=== PATIENT | female | born 1985 | race Caucasian/White ===

== ENCOUNTER 2024-04-23 08:10 | Observation (INO) ==
--- NOTE | 2024-04-23 09:01 | Emergency Department Note ---
Impression & Plan Abdominal pain, Acute appendicitis ED Provider Note ED Provider Note NAME: MADIE BAPTISTE AGE:38 SEX: Female : 1985 ARRIVES VIA: Private vehicle INFORMANT: Patient ED PROVIDER(s): Rhonda Cornelius DO CHIEF COMPLAINT: Abdominal pain HPI: This is a 38-year-old female who presents emergency room due to abdominal pain that began last night. She states pain began in her central upper abdomen, and in the parts sales manager hours moved to her right lower quadrant. She states she had subjective fevers and chills, was nauseated but did not vomit. No left lower quadrant pain. No radiation of the pain into the back. He states she has had small more frequent bowel movements recently, no diarrhea, no black or bloody stools. No recent change in urine or urinary habits. She states no prior history of IBS or IBD. She has had a prior oophorectomy, no other abdominal surgeries. She recently restarted a medication for her hypertrophic cardiomyopathy as she had had difficulty getting it as she recently moved from [place] and was waiting on authorization from her 1st pressman on web press, Dr. Finch. PAST MEDICAL HISTORY:See Below PAST SURGICAL HISTORY:See Below FAMILY HISTORY:See Below SOCIAL HISTORY:See Below HOME MEDICATIONS:See Below ALLERGIES:See Below VITALS:See Below PHYSICAL EXAMINATION: GENERAL: alert, well appearing, well nourished, no distress, non-toxic EYE EXAM: normal conjunctiva, PERRL and EOM's grossly intact OROPHARYNX: no exudate, no erythema, lips, buccal mucosa, and tongue normal and mucous membranes are moist NECK: supple, no nuchal rigidity, no adenopathy, non-tender LUNGS: Clear to auscultation. Normal chest wall mechanics, no w/r/r HEART: no murmurs, S1 normal and S2 normal ABDOMEN: abdomen soft, non-tender, normo-active bowel sounds, no masses, no rebound or guarding. BACK: Back is symmetrical on inspection and there is no deformity, no midline tenderness, no CVA tenderness. SKIN: no rashes, petechiae, orbruising UPPER EXTREMITIES: upper extremities are grossly normal. FROM, nml pulses b/l. LOWER EXTREMITIES: No pitting edema. FROM, nml pulses b/l. NEURO EXAM: Normal sensorium, cranial nerves II-XII grossly intact, normal speech, no facial droop,nogross weakness of arms, no gross weakness of legs. Gross sensation intact. No ataxia. Vital Signs: reviewed and remarkable Differential Diagnosis: Appendicitis, ureterolithiasis, UTI, colitis, bowel obstruction, Crohn's disease, perforation, GI bleed, as well as others were considered MEDICAL DECISION MAKING: This is a 38-year-old female who presents emergency department due to concern for abdominal pain. Labs drawn and sent, IV established, patient monitored on telemetry. EKG performed at bedside interpreted by me. Patient given IV fluids, IV Zofran, IV Tylenol, and IV fentanyl for pain. She was afebrile and vital signs stable. Patient sent for CT of the abdomen and pelvis. CT revealed acute uncomplicated appendicitis. General surgery was contacted, they did come and see the patient. Due to concern for her prior cardiac history, they recommended hospitalist admission and they will see in consult. They also requested a dose of Zosyn to be given empirically. Case discussed with the hospitalist team for additional evaluation and management. Consultation(s): 1100: Lingle text sent to MARINO Gomez, with general surgery. 1134: General surgery request that medicine admit due to consideration of cardiac history. They request a dose of empiric Zosyn be given. 1148: Discussed with Dr. Henson, [facility] hospitalist team, for additional evaluation and management. 1207: [facility] team states patient should be admitted to [facility] given 1st pressman on web press is Dr. Finch. 1217: Discussed with Dr. Arrington, [facility] hospitalist team, for additional evaluation and management. ER Treatment Provided: See below 1055: Updated patient and family at bedside. Diagnostics Interpreted By Me: -ECG: Normal sinus at 61, normal axis, normal intervals, inverted T waves noted in 1, aVL, and V6. -Cardiac Monitoring: An order was placed for continuous cardiac monitoring. The monitor shows a rate of 60 with normal sinus rhythm. -Laboratory studies: As stated above and show below. -Imaging studies: CT a/p - no sbo, no ureterolithiasis Triage Nursing Note Reviewed Prior/Outside Records Reviewed Past Med/Surg History Problem List (Updated 04/23/24 @ 15:39 by Shelbie Jacobson DO) Preoperative cardiovascular examination LVH (left ventricular hypertrophy) Systolic anterior movement of mitral valve Hypertrophic obstructive cardiomyopathy (HOCM) Acute appendicitis (Acute) Abdominal pain (Acute) Medical History Hypertrophic cardiomegaly Social History Smoking Status: Former smoker Tobacco Type: Cigarettes Second Hand Exposure: No; Do You Dip or Chew Tobacco: No; Tobacco Cessation Education Requested by Patient: No Hx Alcohol Use: Yes Alcohol type: hard liquor Hx Substance Use: No Communication Ability: Effective Beliefs That Will Affect Care: None Current Living Situation: Spouse Feels Safe at Home: Yes Allergies Allergies Allergy/AdvReac Type Severity Reaction Status Date / Time cat dander Allergy Difficulty Verified 04/23/24 10:32 Breathing escitalopram [From Lexapro] Allergy Unknown Verified 04/23/24 10:32 Home Meds Home Medications Medication Instructions Recorded Confirmed calcium carbonate (Tums) 300 mg PO TID PRN Acid Reflux 04/23/24 04/23/24 cetirizine 10 mg tablet (Zyrtec) 10 mg PO DAILY 04/23/24 04/23/24 estradiol 0.1 mg/24 hr semiweekly 1 mg transdermal 2XWK 04/23/24 04/23/24 transdermal patch mavacamten 5 mg capsule (Camzyos) 5 mg PO DAILY 04/23/24 04/23/24 metoprolol succinate 200 mg 200 mg PO BID 04/23/24 04/23/24 tablet,extended release 24 hr rosuvastatin 10 mg tablet 10 mg PO DAILY 04/23/24 04/23/24 Results & Data (ED) Vital Signs Vital Signs - 24 hr 04/23/24 08:14 04/23/24 08:30 04/23/24 08:30 Temperature 36.5 C Temperature Source Oral Pulse Rate 72 68 Pulse Rate [Apical] Pulse Rate from SpO2 Sensor Respiratory Rate 18 Blood Pressure 136/78 189/88 H Blood Pressure [Right Arm] Blood Pressure Mean 97 131 Blood Pressure Mean [Right Arm] Blood Pressure Position Sitting Pulse Oximetry 97 Oxygen Delivery Method Room Air Sepsis Recent Fever Within 48 Hours No Sepsis New/Unexplained Change in Mental Status No Sepsis Action Taken by Nursing No Action Required 04/23/24 08:30 04/23/24 08:54 04/23/24 09:00 Temperature Temperature Source Pulse Rate 67 Pulse Rate [Apical] Pulse Rate from SpO2 Sensor 66 Respiratory Rate 19 Blood Pressure 189/88 H 171/88 H Blood Pressure [Right Arm] Blood Pressure Mean 131 115 Blood Pressure Mean [Right Arm] Blood Pressure Position Pulse Oximetry 96 Oxygen Delivery Method Sepsis Recent Fever Within 48 Hours Sepsis New/Unexplained Change in Mental Status Sepsis Action Taken by Nursing 04/23/24 09:09 04/23/24 10:12 04/23/24 11:32 Temperature Temperature Source Pulse Rate 68 69 Pulse Rate [Apical] 62 Pulse Rate from SpO2 Sensor 69 Respiratory Rate 14 12 21 Blood Pressure 132/72 Blood Pressure [Right Arm] 113/92 Blood Pressure Mean 92 Blood Pressure Mean [Right Arm] 99 Blood Pressure Position Pulse Oximetry 93 97 99 Oxygen Delivery Method Room Air Sepsis Recent Fever Within 48 Hours Sepsis New/Unexplained Change in Mental Status Sepsis Action Taken by Nursing Laboratory Data 04/23/24 08:27 04/23/24 08:27 Lab Results 04/23/24 04/23/24 Range/Units 08:25 08:27 WBC 12.71 H (4.8-10.8) K/ul RBC 4.55 (4.20-5.40) M/uL Hgb 13.4 (12.0-16.0) g/dl Hct 38.7 (37.0-47.0) % MCV 85.1 (80.0-100.0) fL MCH 29.5 (25.0-34.0) pg MCHC 34.6 (32.0-36.0) g/dL RDW Std Deviation 36.6 (36.4-46.3) fL RDW Coeff of Carmella 12.0 (11.5-14.5) % Plt Count 198 (130-400) K/uL MPV 11.5 (9.4-12.4) fL Immature Gran % (Auto) 0.4 % Neut % (Auto) 73.0 % Lymph % (Auto) 16.8 % [place] % (Auto) 7.2 % Eos % (Auto) 2.1 % Baso % (Auto) 0.5 % Neut # (Auto) 9.28 H (1.40-6.50) K/uL Lymph # (Auto) 2.13 (1.20-3.40) K/uL [place] # (Auto) 0.92 H (0.11-0.59) K/uL Eos # (Auto) 0.27 (0.00-0.50) K/uL Baso # (Auto) 0.06 (0.00-0.20) K/uL Immature Gran # (Auto) 0.05 (0.01-0.20) K/uL PT 9.9 (9.0-12.0) Seconds INR 0.9 (0.9-1.1) Sodium 138 (136-145) mmol/L Potassium 4.3 (3.5-5.1) mmol/L Chloride 104 (98-107) mmol/L Carbon Dioxide 28 (21-32) mmol/L Anion Gap 6 (3-11) BUN 9 (6-23) mg/dl Creatinine 0.72 (0.6-1.2) mg/dl Est Cr Clr Drug Dosing 147.5 ml/min eGFR 108.33 BUN/Creatinine Ratio 12.5 (10-20) Glucose 115 H (70-99(Fasting)) mg/dl Calcium 9.6 (8.6-10.3) mg/dl Magnesium 1.8 (1.7-2.4) mg/dl Total Bilirubin 0.5 (0.2-1.0) mg/dl AST 17 (13-39) U/L ALT 30 (7-52) U/L Alkaline Phosphatase 49 (34-104) U/L Total Protein 7.1 (6.0-8.3) gm/dl Albumin 4.7 (3.4-5.0) gm/dl Globulin 2.4 L (2.5-4.0) gm/dl Albumin/Globulin Ratio 2.0 (0.9-2) Lipase 13 (11-82) U/L TSH 4.169 (0.300-4.500) uIu/ml HCG, Qual Negative (Negative) Urine Color Yellow Urine Appearance Clear (Clear) Urine pH 5.5 (4.5-7.5) Ur Specific Wilmot 1.018 (1.000-1.030) Urine Protein Negative (Negative) Urine Glucose (UA) Negative (Negative) Urine Ketones Negative (Negative) Urine Blood Negative (Negative) Urine Nitrite Negative (Negative) Urine Bilirubin Negative (Negative) Urine Urobilinogen Negative (Negative) Ur Leukocyte Esterase Trace H (Negative) Urine WBC (Auto) 6-10 H (0-5) /hpf Urine RBC (Auto) 0-2 (0-2) /hpf U Hyaline Cast (Auto) 0-2 (0-2) /lpf U Epithel Cells (Auto) 3-5 H (0-2) /hpf Urine Bacteria (Auto) None Seen (None Seen) Administered Medications Lactated Ringer's (Lr) 1,000 mls @ 125 mls/hr IV .Q8H BARBARA Stop: 05/23/24 13:59 Last Admin: 04/23/24 14:33 Dose: 125 mls/hr Documented By: BCD Piperacillin Sod/Tazobactam Sod (Zosyn) 4.5 gm in 100 mls @ 25 mls/hr IV Q8H [facility]; Protocol Stop: 05/03/24 15:59 Last Admin: 04/23/24 15:55 Dose: 25 mls/hr Documented By: MG Discontinued Medications Bupivacaine HCl (Bupivacaine 0.5 % 5 Mg/1 Ml Mpf 30ml Vial) Confirm Administered Dose 30 ml .ROUTE .STK-MED ONE Stop: 04/23/24 16:23 Last Admin: 04/23/24 17:35 Dose: 30 ml Documented By: [facility] Fentanyl Citrate (Fentanyl Citrate Pf 100 Mcg/2 Ml Vial) 50 mcg IV NOW STA Stop: 04/23/24 08:57 Last Admin: 04/23/24 09:03 Dose: 50 mcg Documented By: HS Hydromorphone HCl (Hydromorphone Inj 0.5 Mg/0.5 Ml Syr) 0.5 mg IV NOW STA Stop: 04/23/24 15:36 Last Admin: 04/23/24 15:40 Dose: 0.5 mg Documented By: MG Hydromorphone HCl (Hydromorphone Inj 0.5 Mg/0.5 Ml Syr) 0.5 mg IV NOW STA Stop: 04/23/24 15:37 Last Admin: 04/23/24 15:40 Dose: Not Given Documented By: MG Sodium Chloride (Nss) 1,000 mls @ 999 mls/hr IV .Q1H1M ONE Stop: 04/23/24 09:56 Last Infusion: 04/23/24 10:04 Dose: Infused Documented By: Admin: 04/23/24 09:03 Dose: 999 mls/hr Documented By: RAE Acetaminophen (Ofirmev) 1,000 mg in 100 mls @ 400 mls/hr IV NOW STA Stop: 04/23/24 09:10 Last Infusion: 04/23/24 09:18 Dose: Infused Documented By: Admin: 04/23/24 09:03 Dose: 400 mls/hr Documented By: RAE Piperacillin Sod/Tazobactam Sod (Zosyn) 4.5 gm in 100 mls @ 200 mls/hr IV NOW ONE Stop: 04/23/24 12:02 Last Infusion: 04/23/24 12:24 Dose: Infused Documented By: Admin: 04/23/24 11:43 Dose: 200 mls/hr Documented By: MAGALI Ioversol (Optiray 320 100ml) 94 ml IV ONCE ONE Stop: 04/23/24 09:56 Last Admin: 04/23/24 09:55 Dose: 94 ml Documented By: SWATHI Metoprolol Succinate (Metoprolol Succ 50mg Ext Rel Tab) 200 mg PO NOW STA Stop: 04/23/24 13:59 Last Admin: 04/23/24 14:33 Dose: 200 mg Documented By: KERVIN Morphine Sulfate (Morphine Sulfate 4 Mg/Ml 1 Ml Carp\Vial) 4 mg IV NOW STA Stop: 04/23/24 11:52 Last Admin: 04/23/24 11:58 Dose: 4 mg Documented By: MAGALI Ondansetron HCl (Ondansetron Inj 2 Mg/Ml 2 Ml Vial) 4 mg IV NOW STA Stop: 04/23/24 08:57 Last Admin: 04/23/24 09:03 Dose: 4 mg Documented By: RAE Ondansetron HCl (Ondansetron Inj 2 Mg/Ml 2 Ml Vial) 4 mg IV NOW STA Stop: 04/23/24 15:31 Last Admin: 04/23/24 15:31 Dose: 4 mg Documented By: Imaging Data Radiologist's Impression: Abdomen/Pelvis CT 04/23/24 08:56 CT SCAN OF THE ABDOMEN AND PELVIS WITH IV CONTRAST CLINICAL HISTORY: Right lower quadrant abdominal pain. COMPARISON STUDY: No priors. TECHNIQUE: Following the IV administration of 94 cc of Optiray 320, CT scan of the abdomen and pelvis is performed from the lung bases to the proximal femora. Images are reviewed in the axial, sagittal, and coronal planes. IV contrast was administered without complication. A dose lowering technique was utilized adhering to the principles of ALARA. CT DOSE: 1548.73 mGy.cm FINDINGS: Lung bases: The heart is normal in size and without pericardial effusion. The lung bases are clear. There is a tiny hiatal hernia. Liver: The contrast-enhanced liver is enlarged, measuring 20.5 cm in length. Attenuation is diffusely diminished indicating steatosis.. There is no intrahepatic biliary ductal dilatation. The hepatic veins and portal veins are patent. Gallbladder: Unremarkable. Spleen: Normal in size and attenuation. Pancreas: Unremarkable. Adrenal glands: Unremarkable. Kidneys: The contrast enhanced kidneys are normal in size and without hydronephrosis. The kidneys enhance symmetrically. Abdominal vasculature: The abdominal aorta is normal in course and caliber. Bowel: There is no bowel obstruction. The appendix is the appendix is thick- walled and dilated, measuring up to 1.5 cm diameter as seen on axial image #257. The appendiceal wall is thickened and there is mild periappendiceal inflammation. Findings are consistent with acute appendicitis. There are large calcified appendicoliths. No fluid collection is seen to indicate abscess. Peritoneum: There is no intraperitoneal free air or abdominal ascites. There is a fat-containing umbilical hernia. Lymphadenopathy: None. Pelvic viscera: The bladder is normal as visualized. The prostate gland is diminutive and heterogeneous. The seminal vesicles are normal as imaged. Skeletal structures: No lytic or blastic lesions are seen. IMPRESSION: 1. Acute appendicitis. 2. There is no evidence of abscess or perforation. 3. Hepatomegaly and hepatic steatosis. 4. Additional findings as above. ACT 112: Negative or not required by law. Electronically signed by: Porfirio Dobson M.D. 04/23/2024 10:15 AM Discharge Plan Visit Data Chief Complaint: Abdominal Pain Stated Complaint: ABD PAIN ED Provider: Rhonda Cornelius Discharge Problem: Abdominal pain, Acute appendicitis Patient Disposition: Admitted As Inpatient Discharge Instructions Interventions: ED Discharge Assessment Last Done: 04/23/24 13:19
[2024-04-23] MEDS: fentaNYL citrate PF 100 MCG/2 ML VIAL IV STA (09:03)
[2024-04-23] MEDS: SODIUM CHLORIDE 0.9% 1,000 ML IV ONE (09:03)
[2024-04-23] MEDS: ONDANSETRON INJ 2 MG/ML 2 ML VIAL IV STA ×2 (09:03→15:31)
[2024-04-23] MEDS: ACETAMINOPHEN 1,000 MG/100 ML VIAL IV STA (09:03)
[2024-04-23 09:17] LABS: Basophils # (auto) 0.06 K/uL (0.00-0.20); Basophils % (auto) 0.5 %; Eosinophils # (auto) 0.27 K/uL (0.00-0.50); Eosinophils % (auto) 2.1 %; Hematocrit (blood only) 38.7 % (37.0-47.0); Hemoglobin 13.4 g/dl (12.0-16.0); Immature Granulocytes # (auto) 0.05 K/uL (0.01-0.20); Immature Granulocytes % (auto) 0.4 %; Lymphocytes # (auto) 2.13 K/uL (1.20-3.40); Lymphocytes % (auto) 16.8 %; Mean Corpuscular Hemoglobin 29.5 pg (25.0-34.0); Mean Corpuscular Hgb Conc 34.6 g/dL (32.0-36.0); Mean Corpuscular Volume 85.1 fL (80.0-100.0); Mean Platelet Volume 11.5 fL (9.4-12.4); Monocytes # (auto) 0.92 K/uL (0.11-0.59); Monocytes % (auto) 7.2 %; Neutrophils # (auto) 9.28 K/uL (1.40-6.50); Platelet Count 198 K/uL (130-400); RDW Standard Deviation 36.6 fL (36.4-46.3); Red Blood Count 4.55 M/uL (4.20-5.40); White Blood Count 12.71 K/ul (4.8-10.8)
[2024-04-23 09:19] LABS: Pregnancy Test, Serum Negative (Negative)
[2024-04-23 09:23] LABS: Albumin Level 4.7 gm/dl (3.4-5.0); BUN Creatinine Ratio 12.5 (10-20); Bilirubin,Total 0.5 mg/dl (0.2-1.0); Calcium 9.6 mg/dl (8.6-10.3); Creatinine Clr Calc Pharmacy 147.5 ml/min; Globulin 2.4 gm/dl (2.5-4.0); Magnesium 1.8 mg/dl (1.7-2.4); Potassium 4.3 mmol/L (3.5-5.1); Total Protein 7.1 gm/dl (6.0-8.3)
[2024-04-23 09:37] LABS: Appearance Urine Clear (Clear); Bacteria Urine Automated None Seen (None Seen); Bilirubin Urine Negative (Negative); Blood Urine Negative (Negative); Cast Urine Automated 0-2 /lpf (0-2); Color Urine Yellow; Glucose Urine UA Negative (Negative); Ketones Urine Negative (Negative); Leukocyte Esterase Urine Trace (Negative); Nitrite Urine Negative (Negative); Protein Urine Negative (Negative); RBC Urine Automated 0-2 /hpf (0-2); Specific Gravity Urine 1.018 (1.000-1.030); Urobilinogen Urine Negative (Negative); pH Urine 5.5 (4.5-7.5)
[2024-04-23 09:39] LABS: INR 0.9 (0.9-1.1); Prothrombin Time 9.9 Seconds (9.0-12.0)
[2024-04-23] MEDS: OPTIRAY 320 100ml IV ONE (09:55)
[2024-04-23 10:03] LABS: Thyroid Stimulating Hormone 4.169 uIu/ml (0.300-4.500)
--- NOTE | 2024-04-23 10:16 | CT Scan Report ---
CT SCAN OF THE ABDOMEN AND PELVIS WITH IV CONTRAST CLINICAL HISTORY: Right lower quadrant abdominal pain. COMPARISON STUDY: No priors. TECHNIQUE: Following the IV administration of 94 cc of Optiray 320, CT scan of the abdomen and pelvi s is performed from the lung bases to the proximal femora. Images are reviewed in the axial, sagittal , and coronal planes. IV contrast was administered without complication. A dose lowering technique wa s utilized adhering to the principles of ALARA. CT DOSE: 1548.73 mGy.cm FINDINGS: Lung bases: The heart is normal in size and without pericardial effusion. The lung bases are clear. T here is a tiny hiatal hernia. Liver: The contrast-enhanced liver is enlarged, measuring 20.5 cm in length. Attenuation is diffusely diminished indicating steatosis.. There is no intrahepatic biliary ductal dilatation. The hepatic ve ins and portal veins are patent. Gallbladder: Unremarkable. Spleen: Normal in size and attenuation. Pancreas: Unremarkable. Adrenal glands: Unremarkable. Kidneys: The contrast enhanced kidneys are normal in size and without hydronephrosis. The kidneys enh ance symmetrically. Abdominal vasculature: The abdominal aorta is normal in course and caliber. Bowel: There is no bowel obstruction. The appendix is the appendix is thick-walled and dilated, ton uring up to 1.5 cm diameter as seen on axial image #257. The appendiceal wall is thickened and there is mild periappendiceal inflammation. Findings are consistent with acute appendicitis. There are larg e calcified appendicoliths. No fluid collection is seen to indicate abscess. Peritoneum: There is no intraperitoneal free air or abdominal ascites. There is a fat-containing umbi lical hernia. Lymphadenopathy: None. Pelvic viscera: The bladder is normal as visualized. The prostate gland is diminutive and heterogeneo us. The seminal vesicles are normal as imaged. Skeletal structures: No lytic or blastic lesions are seen. IMPRESSION: 1. Acute appendicitis. 2. There is no evidence of abscess or perforation. 3. Hepatomegaly and hepatic steatosis. 4. Additional findings as above. ACT 112: Negative or not required by law. Electronically signed by: Porfirio Dobson M.D. 04/23/2024 10:15 AM
[2024-04-23] MEDS: PIPERACILLIN/TAZOBACTAM 4.5 GM/100 ML BAG IV ONE (11:43)
[2024-04-23] MEDS: MoRPHine SULFATE 4 MG/ML 1 ML CARP\\VIAL IV STA (11:58)
--- NOTE | 2024-04-23 12:03 | Surgery Consultation ---
Date of Consultation April 23, 2024 Assessment & Plan (1) Acute appendicitis: Patient with c/o abdominal pain that began last night , started in central abdomen and localized to RLQ. Reports fevers and chills and nausea without vomiting. Reports was not taking Camzyos for her hypertrophic cardiomyopathy as she has just recently moved here from [place] and was waiting on authorization from her manager intermediate, Dr. Finch. While off medication the patient endorses SOB, CP , palpitations while walking short distances (living room to kitchen), last echo was [address] scan concerning for acute appendicitis, WBC 12. On exam pt is in NAD, vSS , abdomen TTP , RLQ . Discussed with patient results of CT scan , recommending laparoscopic appendectomy with hardwood floor installation helper surgeon Dr. Fajardo. It was discussed that the patient could trial a course of antibiotics but states she would rather have surgical intervention. Recommending the patient be admitted to medicine, discussed with anesthesia patients past medical history and they will try to obtain records from Dr. Finch manager intermediate. Keep NPO, IV antibiotics Zosyn was given in the ER, IV fluids for hydration, IV analgesics and antiemetics PRN. Will tentatively add the patient for a laparoscopic appendectomy, surgical intervention is pending anesthesia evaluation/clearance. Patient seen and examined with Dr. Fajardo Supervising Physician Co-Signing Physician Notes Patient seen and examined, labs and imaging reviewed, agree with above. Presented with abdominal pain that migrated to the right lower quadrant. On exam, afebrile stable vitals, tender to palpation in right lower quadrant McBurney's point. CT personally viewed and interpreted agree with the assessment of acute appendicitis without evidence of perforation. Patient has a history of hypertrophic cardiomyopathy and needs treatment for this. Recently moved from [place]. We discussed options to include surgery versus antibiotics, patient desires surgery. We will discuss with anesthesia and if they are okay performing anesthesia at our facility given the cardiac history, then we will proceed with laparoscopic appendectomy. Patient will be admitted to the medicine service. Plan for laparoscopic appendectomy Risk of the procedure were discussed to include but not limited to bleeding, infection, open surgery, damage to surrounding structures, need for future more extensive surgery, abscess, leak, and the risk of anesthesia History of Present Illness Reason for Consultation: acute appendicitis Requesting Physician: Dr. Cornelius History of Present Illness Patient is a pleasant 38 yo female with PMH of hypertropic cardiomyopathy, obesity, HLD, who presented to the [facility] ER with c/o abdominal pain that began last night , started in central abdomen and localized to RLQ. Reports fevers and chills and nausea without vomiting. Denies past abdominal surgeries but does report a prior bilateral orchectomy. Reports was not taking Camzyos for her hypertrophic cardiomyopathy as she has just recently moved here from [place] and was waiting on authorization from her manager intermediate, Dr. Finch. While off medication the patient endorses SOB, CP , palpitations while walking short distances (living room to kitchen), last echo was 3 months ago. She denies blood thinners. General surgery was consulted for CT scan reading concerns for acute appendicitis. Allergies Allergy/AdvReac Type Severity Reaction Status Date / Time cat dander Allergy Difficulty Verified 04/23/24 10:32 Breathing escitalopram [From Lexapro] Allergy Unknown Verified 04/23/24 10:32 Home Medications Medication Instructions Recorded Confirmed Type calcium carbonate (Tums) 300 mg PO TID PRN Acid Reflux 04/23/24 04/23/24 History cetirizine 10 mg tablet (Zyrtec) 10 mg PO DAILY 04/23/24 04/23/24 History estradiol 0.1 mg/24 hr semiweekly 1 mg transdermal 2XWK 04/23/24 04/23/24 History transdermal patch mavacamten 5 mg capsule (Camzyos) 5 mg PO DAILY 04/23/24 04/23/24 History metoprolol succinate 200 mg 200 mg PO BID 04/23/24 04/23/24 History tablet,extended release 24 hr rosuvastatin 10 mg tablet 10 mg PO DAILY 04/23/24 04/23/24 History Patient History Medical History (Updated 04/23/24 @ 12:20 by Ludwig Arrington MD) Hypertrophic cardiomegaly Social History Smoking Status: Current some day smoker Feels Safe at Home: Yes Review of Systems Constitutional: + fever and + chills Gastrointestinal: + abdominal pain and + nausea; no vomiti ng Physical Exam Constitutional: cooperative and comfortable; no acute distress Respiratory: normal respiratory effort and able to speak in complete sentences; no respiratory distress Cardiovascular: Rate/Rhythm: regular rate Gastrointestinal (Abdomen): Percussion/Palpation: + abdomen tender, + guarding and abdomen soft Results & Data Vital Signs (Past 12 Hours) Vital Signs Temp Pulse Pulse Resp BP BP Pulse Ox 04/23/24 11:32 62 21 113/92 99 04/23/24 10:12 69 12 132/72 97 04/23/24 09:09 68 14 93 04/23/24 09:00 171/88 H 04/23/24 08:54 67 19 96 04/23/24 08:30 189/88 H 04/23/24 08:30 189/88 H 04/23/24 08:30 68 04/23/24 08:14 97.7 F 72 18 136/78 97 O2 Del Method 04/23/24 11:32 Room Air 04/23/24 10:12 04/23/24 09:09 04/23/24 09:00 04/23/24 08:54 04/23/24 08:30 04/23/24 08:30 04/23/24 08:30 04/23/24 08:14 Room Air Diagnostic Findings [place], [place] [phone] CT Scan Report Patient: MADIE BAPTISTE Admit Date: 04/23/24 MR#: [id number] Address1: [address] Acct ID:[id number] Address2: [address] Date: 1985 [facility] Zip: [place] [address] Age: 38 Location: ED Sex: F Room/Bed: Att Phy: Diagnosis: ABD PAIN Jigna Phy: PCP,NO Service Date: 04/23/24 Fam Phy: Interpreting Phy: Porfirio Dobson MDAdmit Phy: Ordering Phy: Rhonda Cornelius DO cc: ~ CT SCAN OF THE ABDOMEN AND PELVIS WITH IV CONTRAST CLINICAL HISTORY: Right lower quadrant abdominal pain. COMPARISON STUDY: No priors. TECHNIQUE: Following the IV administration of 94 cc of Optiray 320, CT scan of the abdomen and pelvis is performed from the lung bases to the proximal femora. Images are reviewed in the axial, sagittal, and coronal planes. IV contrast was administered without complication. A dose lowering technique was utilized adhering to the principles of ALARA. CT DOSE: 1548.73 mGy.cm FINDINGS: Lung bases: The heart is normal in size and without pericardial effusion. The lung bases are clear. There is a tiny hiatal hernia. Liver: The contrast-enhanced liver is enlarged, measuring 20.5 cm in length. Attenuation is diffusely diminished indicating steatosis.. There is no intrahepatic biliary ductal dilatation. The hepatic veins and portal veins are patent. Gallbladder: Unremarkable. Spleen: Normal in size and attenuation. Pancreas: Unremarkable. Adrenal glands: Unremarkable. Kidneys: The contrast enhanced kidneys are normal in size and without hydronephrosis. The kidneys enhance symmetrically. Abdominal vasculature: The abdominal aorta is normal in course and caliber. Bowel: There is no bowel obstruction. The appendix is the appendix is thick- walled and dilated, measuring up to 1.5 cm diameter as seen on axial image #257. The appendiceal wall is thickened and there is mild periappendiceal inflammation. Findings are consistent with acute appendicitis. There are large calcified appendicoliths. No fluid collection is seen to indicate abscess. Peritoneum: There is no intraperitoneal free air or abdominal ascites. There is a fat-containing umbilical hernia. Lymphadenopathy: None. Pelvic viscera: The bladder is normal as visualized. The prostate gland is diminutive and heterogeneous. The seminal vesicles are normal as imaged. Skeletal structures: No lytic or blastic lesions are seen. IMPRESSION: 1. Acute appendicitis. 2. There is no evidence of abscess or perforation. 3. Hepatomegaly and hepatic steatosis. 4. Additional findings as above. ACT 112: Negative or not required by law. Electronically signed by: Porfirio Dobson M.D. 04/23/2024 10:15 AM Dictated: 04/23/24 1010 Transcribed: 04/23/24 1010 Results CBC w Diff Results: RBC 4.55 M/uL (4.20-5.40) 04/23/24 WBC 12.71 K/ul (4.8-10.8) H 04/23/24 Hgb 13.4 g/dl (12.0-16.0) 04/23/24 Hct 38.7 % (37.0-47.0) 04/23/24 MCV 85.1 fL (80.0-100.0) 04/23/24 MCH 29.5 pg (25.0-34.0) 04/23/24 MCHC 34.6 g/dL (32.0-36.0) 04/23/24 RDW Standard Deviation 36.6 fL (36.4-46.3) 04/23/24 RDW Coefficient of Variation 12.0 % (11.5-14.5) 04/23/24 Plt Count 198 K/uL (130-400) 04/23/24 MPV 11.5 fL (9.4-12.4) 04/23/24 Neutrophils (%) (Auto) 73.0 % 04/23/24 Lymphocytes (%) (Auto) 16.8 % 04/23/24 Monocytes # (Auto) 0.92 K/uL (0.11-0.59) H 04/23/24 Eosinophils # (Auto) 0.27 K/uL (0.00-0.50) 04/23/24 Immature Granulocyte % (Auto) 0.4 % 04/23/24 Neutrophils # (Auto) 9.28 K/uL (1.40-6.50) H 04/23/24 Lymphocytes # (Auto) 2.13 K/uL (1.20-3.40) 04/23/24 Monocytes # (Auto) 0.92 K/uL (0.11-0.59) H 04/23/24 Eosinophils # (Auto) 0.27 K/uL (0.00-0.50) 04/23/24 Basophils # (Auto) 0.06 K/uL (0.00-0.20) 04/23/24 Immature Granulocyte # (Auto) 0.05 K/uL (0.01-0.20) 4 PG Care Time/CCT Total # of Minutes Spent Total Time Spent with Patient: Total time spent is greater than 50% in coordination of care (as documented) at patient's floor/unit and/or counseling patient: Coding Level of Care Code 01756 IN/OBS CONSULT LVL 3,45M Diagnoses Acute appendicitis K35.80
--- NOTE | 2024-04-23 12:23 | History & Physical Report ---
Date of Service April 23, 2024 Assessment & Plan (1) Acute appendicitis: Plan: NPO, IV Zosyn, LR @ 125ml/hr Consult surgery. Planning on appendectomy pending anesthesia review. (2) Hypertrophic cardiomegaly: Plan: Consult cardiology for pre-operative clearance and recommendations regarding paramjit-operative management with Camzyos. Give metoprolol succinate now as did not take this morning and will need to continue this paramjit-operatively Plan VTE Prophyalxis - deferred pending surgical plan Diet - NPO Disposition - observation to med/tele Admission and Anticipated Discharge Date Admission Date: April 23, 2024 History of Present Illness Chief Complaint: Abdominal pain Primary Care Provider: NO PCP Olesya Coombs is a 38 year old transgender female who presents to the ER with abdominal pain. Abdominal pain started last night, initially central but moved to the right lower quadrant. Subjective chills with nausea but no vomiting. Recently just restarted Camzyos for HOCM and reportedly does much better with shortness of breath on this medication. Currently no shortness of breath, chest pain, palpitations, leg swelling or weight gain. Allergies Allergy/AdvReac Type Severity Reaction Status Date / Time cat dander Allergy Difficulty Verified 04/23/24 10:32 Breathing escitalopram [From Lexapro] Allergy Unknown Verified 04/23/24 10:32 Home Medications Medication Instructions Recorded Confirmed Type calcium carbonate (Tums) 300 mg PO TID PRN Acid Reflux 04/23/24 04/23/24 History cetirizine 10 mg tablet (Zyrtec) 10 mg PO DAILY 04/23/24 04/23/24 History estradiol 0.1 mg/24 hr semiweekly 1 mg transdermal 2XWK 04/23/24 04/23/24 History transdermal patch mavacamten 5 mg capsule (Camzyos) 5 mg PO DAILY 04/23/24 04/23/24 History metoprolol succinate 200 mg 200 mg PO BID 04/23/24 04/23/24 History tablet,extended release 24 hr rosuvastatin 10 mg tablet 10 mg PO DAILY 04/23/24 04/23/24 History Past Med/Surg History Problem List (Updated 04/23/24 @ 15:39 by Shelbie Jacobson DO) Preoperative cardiovascular examination LVH (left ventricular hypertrophy) Systolic anterior movement of mitral valve Hypertrophic obstructive cardiomyopathy (HOCM) Acute appendicitis (Acute) Abdominal pain (Acute) Medical History Hypertrophic cardiomegaly Social History Smoking Status: Former smoker Tobacco Type: Cigarettes Second Hand Exposure: No; Do You Dip or Chew Tobacco: No; Tobacco Cessation Education Requested by Patient: No Hx Alcohol Use: Yes Alcohol type: hard liquor Hx Substance Use: No Communication Ability: Effective Beliefs That Will Affect Care: None Current Living Situation: Spouse Feels Safe at Home: Yes Review of Systems Review of Systems: All systems reviewed & are unremarkable except as noted in HPI & below Physical Exam Constitutional: WD/WN, vitals as above ENMT: external ear and nose normal, oropharynx normal Respiratory: normal respiratory effort, lungs clear to auscultation Cardiovascular: Rate/Rhythm: regular rate and regular rhythm Heart Sounds: + murmur Extremities: normal capillary refill; no calf tenderness and no pedal edema Gastrointestinal (Abdomen): normal bowel sounds, soft, nontender, no hepatosp lenomegaly Musculoskeletal: no cyanosis or clubbing, extremities motor strength 5/5 Skin: no rashes, warm and dry Neurologic: moves all extremities and awake; not confused Psychiatric: A+Ox3, euthymic affect Results & Data Results & Data Vital Signs (Past 12 Hours) Vital Signs Temp Pulse Pulse Resp BP BP Pulse Ox 04/23/24 11:32 62 21 113/92 99 04/23/24 10:12 69 12 132/72 97 04/23/24 09:09 68 14 93 04/23/24 09:00 171/88 H 04/23/24 08:54 67 19 96 04/23/24 08:30 189/88 H 04/23/24 08:30 189/88 H 04/23/24 08:30 68 04/23/24 08:14 36.5 C 72 18 136/78 97 O2 Del Method 04/23/24 11:32 Room Air 04/23/24 10:12 04/23/24 09:09 04/23/24 09:00 04/23/24 08:54 04/23/24 08:30 04/23/24 08:30 04/23/24 08:30 04/23/24 08:14 Room Air Laboratory Results Abnormal lab results 04/23/24 04/23/24 Range/Units 08:25 08:27 WBC 12.71 H (4.8-10.8) K/ul Neut # (Auto) 9.28 H (1.40-6.50) K/uL [place] # (Auto) 0.92 H (0.11-0.59) K/uL Glucose 115 H (70-99(Fasting)) mg/dl Globulin 2.4 L (2.5-4.0) gm/dl Ur Leukocyte Esterase Trace H (Negative) Urine WBC (Auto) 6-10 H (0-5) /hpf U Epithel Cells (Auto) 3-5 H (0-2) /hpf Diagnostic Findings CT SCAN OF THE ABDOMEN AND PELVIS WITH IV CONTRAST CLINICAL HISTORY: Right lower quadrant abdominal pain. COMPARISON STUDY: No priors. TECHNIQUE: Following the IV administration of 94 cc of Optiray 320, CT scan of the abdomen and pelvis is performed from the lung bases to the proximal femora. Images are reviewed in the axial, sagittal, and coronal planes. IV contrast was administered without complication. A dose lowering technique was utilized adhering to the principles of ALARA. CT DOSE: 1548.73 mGy.cm FINDINGS: Lung bases: The heart is normal in size and without pericardial effusion. The lung bases are clear. There is a tiny hiatal hernia. Liver: The contrast-enhanced liver is enlarged, measuring 20.5 cm in length. Attenuation is diffusely diminished indicating steatosis.. There is no intrahepatic biliary ductal dilatation. The hepatic veins and portal veins are patent. Gallbladder: Unremarkable. Spleen: Normal in size and attenuation. Pancreas: Unremarkable. Adrenal glands: Unremarkable. Kidneys: The contrast enhanced kidneys are normal in size and without hydronephrosis. The kidneys enhance symmetrically. Abdominal vasculature: The abdominal aorta is normal in course and caliber. Bowel: There is no bowel obstruction. The appendix is the appendix is thick- walled and dilated, measuring up to 1.5 cm diameter as seen on axial image #257. The appendiceal wall is thickened and there is mild periappendiceal inflammation. Findings are consistent with acute appendicitis. There are large calcified appendicoliths. No fluid collection is seen to indicate abscess. Peritoneum: There is no intraperitoneal free air or abdominal ascites. There is a fat-containing umbilical hernia. Lymphadenopathy: None. Pelvic viscera: The bladder is normal as visualized. The prostate gland is diminutive and heterogeneous. The seminal vesicles are normal as imaged. Skeletal structures: No lytic or blastic lesions are seen. IMPRESSION: 1. Acute appendicitis. 2. There is no evidence of abscess or perforation. 3. Hepatomegaly and hepatic steatosis. 4. Additional findings as above. Medications Administered ER Medications Given: Normal saline 1L Ondansetron 4mg IV Acetaminophen 1000mg IV Fentanyl 50 mcg IV Zosyn 4.5g IV ECG Rate (beats per minute): 61 Rhythm: normal sinus Findings: + nonspecific-ST abn Comparison ECG Date: no prior available Code Status & VTE Plan Code Status Full VTE Prophylaxis Plan VTE Prophylaxis will be ordered: No PG Care Time/CCT Total # of Minutes Spent Total Time Spent with Patient: Total time spent is greater than 50% in coordination of care (as documented) at patient's floor/unit and/or counseling patient: Coding Level of Care Code 21429 INT INP/OBS CARE 3/75MIN Diagnoses Acute appendicitis K35.80 Hypertrophic cardiomegaly I51.7
[2024-04-23] MEDS ORDERED: ONDANSETRON INJ 2 MG/ML 2 ML VIAL IV PRN (13:58)
[2024-04-23] MEDS ORDERED: ACETAMINOPHEN 1,000 MG/100 ML VIAL IV PRN (13:58)
[2024-04-23] MEDS: METOPROLOL SUCC 50MG EXT REL TAB PO STA (14:33)
[2024-04-23] MEDS: LACTATED RINGER'S 1,000 ML IV SCH (14:33)
[2024-04-23] MEDS ORDERED: fentaNYL citrate PF 100 MCG/2 ML VIAL ONE (14:52)
[2024-04-23] MEDS ORDERED: MIDAZOLAM HCL 1 MG/ML 2ML VIAL ONE (14:52)
--- NOTE | 2024-04-23 15:33 | Cardiology Consultation ---
Date of Consultation April 23, 2024 Assessment & Plan (1) Preoperative cardiovascular examination: (2) Hypertrophic obstructive cardiomyopathy (HOCM): (3) Systolic anterior movement of mitral valve: (4) LVH (left ventricular hypertrophy): (5) Acute appendicitis: Plan Keep well hydrate and avoid tachycardia-these condition will increase the LVOT gradient and can precipitate diastolic CHF. Use IV metoprolol 5 mg q 6 hours if remains NPO-to keep resting HR around 60s. Cont IVF. Check post op ECG. Will follow up with the patient in am. Will resume Camzyos Thank you for the consult. History of Present Illness Reason for Consultation: preop clearance appendicitis hx HOCM with BELEN Attending Physician: Ludwig Arrington MD History of Present Illness Thank you for allowing us to participate in the care of Olesya Coombs. She is a 38y/o with history of hypertrophic obstructive cardiomyopathy with BELEN. She has documented rest gradients and valsalva gradients going to 100mmhg. She was previously treated with Camzyous which significantly improved gradients but unfortunately when she moved from [place], was unable to find a prescriber for the drug. It has controlled pharmacy and is only Rx by cardiology due to strict guidelines of treatment (q 3 month echos etc). She did well on this and it was restarted only a day ago. She is here due to abdominal pain diagnosed with acute appy-to have surgery today. Baseline ECG shows NSR with LVH. VSS otherwise. Allergies Allergy/AdvReac Type Severity Reaction Status Date / Time cat dander Allergy Difficulty Verified 04/23/24 10:32 Breathing escitalopram [From Lexapro] Allergy Unknown Verified 04/23/24 10:32 Home Medications Medication Instructions Recorded Confirmed Type calcium carbonate (Tums) 300 mg PO TID PRN Acid Reflux 04/23/24 04/23/24 History cetirizine 10 mg tablet (Zyrtec) 10 mg PO DAILY 04/23/24 04/23/24 History estradiol 0.1 mg/24 hr semiweekly 1 mg transdermal 2XWK 04/23/24 04/23/24 History transdermal patch mavacamten 5 mg capsule (Camzyos) 5 mg PO DAILY 04/23/24 04/23/24 History metoprolol succinate 200 mg 200 mg PO BID 04/23/24 04/23/24 History tablet,extended release 24 hr rosuvastatin 10 mg tablet 10 mg PO DAILY 04/23/24 04/23/24 History Patient History Medical History (Updated 04/23/24 @ 15:39 by Shelbie Jacobson DO) Hypertrophic cardiomegaly Social History Smoking Status: Former smoker Tobacco Type: Cigarettes Second Hand Exposure: No; Do You Dip or Chew Tobacco: No; Hx Alcohol Use: Yes Alcohol type: hard liquor Hx Substance Use: No Communication Ability: Effective Beliefs That Will Affect Care: None Current Living Situation: Spouse Feels Safe at Home: Yes Review of Systems Review of Systems: All systems reviewed & are unremarkable except as noted in HPI & below Physical Exam Physical Exam: AAO x 3 in mild-mod distress due to abdominal pain with nausea Respiratory: normal respiratory effort, lungs clear to auscultation Cardiovascular: grade 3 ANTHONY at base c/w HOCM Results & Data Vital Signs (Past 12 Hours) Vital Signs Temp Pulse Pulse Resp BP BP BP 04/23/24 14:44 36.9 C 65 18 112/72 04/23/24 14:22 66 04/23/24 13:00 63 21 155/83 H 04/23/24 11:32 62 21 113/92 04/23/24 10:12 69 12 132/72 04/23/24 09:09 68 14 04/23/24 09:00 171/88 H 04/23/24 08:54 67 19 04/23/24 08:30 189/88 H 04/23/24 08:30 189/88 H 04/23/24 08:30 68 04/23/24 08:14 36.5 C 72 18 136/78 Pulse Ox O2 Del Method 04/23/24 14:44 94 Room Air 04/23/24 14:22 04/23/24 13:00 96 Room Air 04/23/24 11:32 99 Room Air 04/23/24 10:12 97 04/23/24 09:09 93 04/23/24 09:00 04/23/24 08:54 96 04/23/24 08:30 04/23/24 08:30 04/23/24 08:30 04/23/24 08:14 97 Room Air Laboratory Results Abnormal lab results 04/23/24 04/23/24 Range/Units 08:25 08:27 WBC 12.71 H (4.8-10.8) K/ul Neut # (Auto) 9.28 H (1.40-6.50) K/uL [place] # (Auto) 0.92 H (0.11-0.59) K/uL Glucose 115 H (70-99(Fasting)) mg/dl Globulin 2.4 L (2.5-4.0) gm/dl Ur Leukocyte Esterase Trace H (Negative) Urine WBC (Auto) 6-10 H (0-5) /hpf U Epithel Cells (Auto) 3-5 H (0-2) /hpf ECG Additional Comments: NSR LVH
[2024-04-23] MEDS: HYDROmorphone INJ 0.5 MG/0.5 ML SYR IV STA ×2 (15:40)
--- NOTE | 2024-04-23 15:42 | Anesthesiology Consultation ---
Date of Service April 23, 2024 Assessment & Plan Chart Review Chart Review: Acceptable Risk for Surgery and Patient NOT seen in Pre Admission Testing Consults Requested none Discussed patient with Dr. Jacobson and optimized to proceed with appropriate cardiac parameters being observed during paramjit-operative period ASA [id number] Proposed Anesthesia Anesthesia Type: General History Surgery Operation Date: 04/23/24 11:20 Proposed Procedures p Laparoscopic Appendectomy - Santos Fajardo DO, FACS Height/Weight Height: 5 ft 9 in Weight: 125.6 kg Allergies Allergy/AdvReac Type Severity Reaction Status Date / Time cat dander Allergy Difficulty Verified 04/23/24 10:32 Breathing escitalopram [From Lexapro] Allergy Unknown Verified 04/23/24 10:32 Medications Home Medications Medication Instructions Recorded Confirmed Last Taken calcium carbonate (Tums) 300 mg PO TID PRN Acid Reflux 04/23/24 04/23/24 04/22/24 cetirizine 10 mg tablet (Zyrtec) 10 mg PO DAILY 04/23/24 04/23/24 04/22/24 estradiol 0.1 mg/24 hr semiweekly 1 mg transdermal 2XWK 04/23/24 04/23/24 04/20/24 transdermal patch mavacamten 5 mg capsule (Camzyos) 5 mg PO DAILY 04/23/24 04/23/24 04/22/24 metoprolol succinate 200 mg 200 mg PO BID 04/23/24 04/23/24 04/22/24 tablet,extended release 24 hr rosuvastatin 10 mg tablet 10 mg PO DAILY 04/23/24 04/23/24 04/22/24 Active Medications Generic Name Dose Route Start Last Admin Trade Name Freq PRN Reason Stop Dose Admin Lactated Ringer's 1,000 mls @ 125 mls/hr 04/23/24 14:00 04/23/24 14:33 Lr IV 05/23/24 13:59 125 mls/hr .Q8H BARBARA Administration NPO Date Last Intake of Fluids: 04/23/24 Time Last Intake of Fluids: 08:00 Last Intake of Fluids Comment: gatorade Date Last Intake of Solids: 04/22/24 Time Last Intake of Solids: 21:30 Past Medical History Medical History Hypertrophic cardiomegaly Social History Smoking Status: Former smoker Do You Dip or Chew Tobacco: No Hx Alcohol Use: Yes Alcohol type: hard liquor alcohol intake frequency: holidays/special occasions only Hx Substance Use: No Review of Systems Constitutional: + fever and + chills Gastrointestinal: + abdominal pain and + nausea; no vomiting Physical Exam Vital Signs Last Vital Signs Temp 36.6 C 04/23/24 15:15 Pulse 61 04/23/24 15:15 Resp 16 04/23/24 15:15 BP 134/69 04/23/24 15:15 Pulse Ox 96 04/23/24 15:15 O2 Del Method Room Air 04/23/24 15:15 Constitutional cooperative and comfortable; no acute distress Respiratory normal respiratory effort, lungs clear to auscultation normal respiratory effort and able to speak in complete sentences; no respiratory distress Cardiovascular Rate/Rhythm: regular rate Gastrointestinal (Abdomen) Percussion/Palpation: + abdomen tender, + guarding and abdomen soft Testing Laboratory Results 04/23/24 08:27 04/23/24 08:27 PT 9.9 Seconds (9.0-12.0) 04/23/24 08:27 INR 0.9 (0.9-1.1) 04/23/24 08:27 Urine Color Yellow 04/23/24 08:25 Urine Appearance Clear (Clear) 04/23/24 08:25 Urine pH 5.5 (4.5-7.5) 04/23/24 08:25 Ur Specific Export 1.018 (1.000-1.030) 04/23/24 08:25 Urine Protein Negative (Negative) 04/23/24 08:25 Urine Glucose (UA) Negative (Negative) 04/23/24 08:25 Urine Ketones Negative (Negative) 04/23/24 08:25 Urine Nitrite Negative (Negative) 04/23/24 08:25 Ur Leukocyte Esterase Trace (Negative) H 04/23/24 08:25 Urine WBC (Auto) 6-10 /hpf (0-5) H 04/23/24 08:25 Urine RBC (Auto) 0-2 /hpf (0-2) 04/23/24 08:25 U Hyaline Cast (Auto) 0-2 /lpf (0-2) 04/23/24 08:25 U Epithel Cells (Auto) 3-5 /hpf (0-2) H 04/23/24 08:25 Urine Bacteria (Auto) None Seen (None Seen) 04/23/24 08:25
[2024-04-23] MEDS ORDERED: DROPERIDOL 5 MG/2 ML VIAL IV PRN (15:45)
[2024-04-23] MEDS ORDERED: ePHEDrine sulfate 50 MG/ML AMP IV PRN (15:45)
[2024-04-23] MEDS: PIPERACILLIN/TAZOBACTAM 4.5 GM/100 ML BAG IV SCH (15:55)
--- NOTE | 2024-04-23 16:37 | Electrocardiogram Report ---
Test Reason : Blood Pressure : */* mmHG Vent. Rate : 61 BPM Atrial Rate : 61 BPM P-R Int : 178 ms QRS Dur : 92 ms QT Int : 440 ms P-R-T Axes : 48 38 125 degrees QTcB Int : 442 ms Normal sinus rhythm Minimal voltage criteria for LVH, may be normal variant Abnormal ECG No previous ECGs available Confirmed by Lyle Loomis ([id number]) on 04/23/2024 4:37:23 PM Referred By: REFERRED SELF Confirmed By: Lyle Loomis
[2024-04-23] MEDS ORDERED: PHENYLEPHRINE HCL 10 MG/ML VIAL ONE (16:56)
[2024-04-23] MEDS ORDERED: PROPOFOL IV EMULSION 10 MG/ML 20 ML VIAL IV ONE (17:15)
[2024-04-23] MEDS ORDERED: SUCCINYLCHOLINE CHLORIDE 20 MG/ML 10 ML VIAL IV ONE (17:15)
[2024-04-23] MEDS ORDERED: PHENYLEPHRINE 100MCG/ML 10ML SYR IV ONE (17:15)
[2024-04-23] MEDS ORDERED: ROCURONIUM BROMIDE 10 MG/ML 5 ML VIAL IV ONE (17:15)
[2024-04-23] MEDS: BUPIVACAINE 0.5 % 5 MG/1 ML MPF 30ML VIAL ONE (17:35)
[2024-04-23] MEDS ORDERED: SUGAMMADEX SODIUM 200 MG/2 ML VIAL IV ONE (17:40)
--- NOTE | 2024-04-23 17:41 | Operative Report ---
PG Post Operative Report Pre & Post Diagnosis Operation Date: 04/23/24 11:20 Pre-Op Diagnosis: Acute appendicitis Post-Op Diagnosis: Acute appendicitis I identified the patient and participated in the time-out.: Yes Procedure Operation Date: 04/23/24 11:20 Actual Procedures p Laparoscopic Appendectomy(Not Applicable) - Santos Fajardo DO, FACS Surgeon Santos Fajardo DO, FACS Anesthesiologists' Assistant Birdie Hewitt Estimated Blood Loss 5 Findings Consistent with Post-Op Diagnosis Acute, nonperforated appendicitis Specimens Appended Anesthesia Type General Disposition Accompanied Patient To Recovery: No Disposition: Recovery Room Indications Patient presented with signs symptoms of acute appendicitis, plan for laparoscopic appendectomy. The risks of the procedure were discussed, all questions were answered, and the patient agreed to proceed with surgery as planned. Description of Procedure The patient was properly identified, consented, and taken to the operating room where the patient was placed in the supine position. General endotracheal anesthesia was induced. SCDs and a safety belt were placed. Preoperative antibiotics were administered. A Pack catheter was not placed. The patient's abdomen was prepped and draped in the standard sterile fashion. Surgical timeout was performed and all parties were in agreement that this was the correct patient and procedure to be performed and we continued as planned. An incision was made superior to the left of the umbilicus. Veress needle was inserted and saline drop test confirmed entry into the abdomen. The Veress needle was removed and the abdomen was entered using a 5 mm 30 degree scope and a 5 mm port using the Optiview technique. The abdomen was insufflated with carbon dioxide which the patient tolerated without incident. The laparoscope was inserted and no damage from initial trocar placement was noted, no gross abnormalities were noted within the 4 quadrants the abdomen. A 12 mm port was placed in the left lower quadrant with care not to damage the epigastric vessels, and a 5 mm port was placed in the suprapubic midline with care not to damage the bladder. The patient was placed in Trendelenburg position and rotated towards the left. The small bowel was swept away from the right lower quadrant. The cecum was grasped with an atraumatic grasper exposing the appendix. The appendix was moderate inflamed and there was no evidence of perforation. There was no fluid in the pelvis. A window was created between the base of the appendix and the mesoappendix. A santillan loaded endoscopic stapler was then used to divide the appendix at its base. The Sonicision was then used to divide the mesoappendix. Hemostasis was good. The appendix was placed in an Endo Catch bag and removed through the umbilical port site. The right lower quadrant and pelvis was irrigated and hemostasis was found to be good. The 12 mm port site was closed using a [id number] 0 Vicryl suture and the Claude-Usama device. The ports were removed and the abdomen was allowed to collapse. The wound was irrigated, and the skin of all ports was closed with 4-0 Monocryl subcuticular sutures. Dermabond was placed over the wounds. The patient was extubated in the operating room and taken to the PACU where the patient recovered without apparent incident. All sponge, instrument and needle counts were correct at the conclusion of the procedure. The patient tolerated the procedure well. Physicians blacksmith assistant was present and scrubbed for the entirety the case. She was critical in positioning the patient, prepping and draping, retraction and exposure, driving the laparoscope, closure incisions, placement of the dressings. I attest to the content of the Intraoperative Record and any orders documented therein. Any exceptions are noted below.
[2024-04-23] MEDS: fentaNYL citrate PF 100 MCG/2 ML VIAL IV PRN (18:15)
--- NOTE | 2024-04-23 18:17 | Anesthesiology Progress Note ---
Date of Service April 23, 2024 Anesthesia Post Procedure Vital Signs Vital Signs: Temp Pulse Pulse Resp BP BP BP 04/23/24 18:10 72 16 123/73 04/23/24 18:00 73 16 136/76 04/23/24 17:50 36.5 C 78 18 152/85 H 04/23/24 15:15 36.6 C 61 16 134/69 04/23/24 14:44 36.9 C 65 18 112/72 04/23/24 14:22 66 04/23/24 13:00 63 21 155/83 H 04/23/24 11:32 62 21 113/92 04/23/24 10:12 69 12 132/72 04/23/24 09:09 68 14 04/23/24 09:00 171/88 H 04/23/24 08:54 67 19 04/23/24 08:30 189/88 H 04/23/24 08:30 189/88 H 04/23/24 08:30 68 04/23/24 08:14 36.5 C 72 18 136/78 Pulse Ox O2 Del Method O2 Flow Rate 04/23/24 18:10 96 Nasal Cannula 3 04/23/24 18:00 96 Nasal Cannula 3 04/23/24 17:50 96 Nasal Cannula 3 04/23/24 15:15 96 Room Air 04/23/24 14:44 94 Room Air 04/23/24 14:22 04/23/24 13:00 96 Room Air 04/23/24 11:32 99 Room Air 04/23/24 10:12 97 04/23/24 09:09 93 04/23/24 09:00 04/23/24 08:54 96 04/23/24 08:30 04/23/24 08:30 04/23/24 08:30 04/23/24 08:14 97 Room Air Pain Intensity Abdomen: Pain Intensity: 10 Transfer of Care Handoff Completed per policy Notes Mental Status: alert / awake / arousable Patient Amnestic to Procedure: Yes Nausea / Vomiting: adequately controlled Pain: adequately controlled Airway Patency, RR, SpO2: stable & adequate BP & HR: stable & adequate Hydration State: stable & adequate Anesthetic Complications: no major complications apparent
[2024-04-23] MEDS ORDERED: MoRPHine SULFATE 4 MG/ML 1 ML CARP\\VIAL IV PRN (19:13)
[2024-04-23] MEDS ORDERED: MoRPHine SULFATE 2 MG/ML CARP IV PRN (19:13)
[2024-04-23] MEDS ORDERED: oxyCODONE HCL IR 5 MG TAB (IMMEDIATE RELEASE) PO PRN (19:13)
[2024-04-23] MEDS: oxyCODONE HCL IR 5 MG TAB (IMMEDIATE RELEASE) PO PRN (20:10)
[2024-04-23] MEDS ORDERED: Nursing to Pharmacy Communication SCH (22:30)
[2024-04-23] MEDS: CETIRIZINE HCL 10 MG TABLET PO SCH (22:58)
[2024-04-23] MEDS: ROSUVASTATIN CALCIUM 10 MG TAB PO SCH (22:58)
[2024-04-24 03:11] VITALS: O2SAT 94
[2024-04-24] MEDS: ACETAMINOPHEN 325 MG TAB PO PRN (03:30)
[2024-04-24 06:40] LABS: Basophils # (auto) 0.02 K/uL (0.00-0.20); Basophils % (auto) 0.1 %; Eosinophils # (auto) 0.01 K/uL (0.00-0.50); Eosinophils % (auto) 0.1 %; Hematocrit (blood only) 33.9 % (37.0-47.0); Hemoglobin 11.8 g/dl (12.0-16.0); Immature Granulocytes # (auto) 0.06 K/uL (0.01-0.20); Immature Granulocytes % (auto) 0.4 %; Lymphocytes # (auto) 1.24 K/uL (1.20-3.40); Lymphocytes % (auto) 8.9 %; Mean Corpuscular Hemoglobin 29.5 pg (25.0-34.0); Mean Corpuscular Hgb Conc 34.8 g/dL (32.0-36.0); Mean Corpuscular Volume 84.8 fL (80.0-100.0); Mean Platelet Volume 11.3 fL (9.4-12.4); Monocytes # (auto) 1.06 K/uL (0.11-0.59); Monocytes % (auto) 7.6 %; Neutrophils # (auto) 11.56 K/uL (1.40-6.50); Neutrophils % (auto) 82.9 %; Platelet Count 188 K/uL (130-400); RDW Coefficient of Variation 11.8 % (11.5-14.5); White Blood Count 13.95 K/ul (4.8-10.8)
[2024-04-24 07:02] LABS: Albumin Level 4.1 gm/dl (3.4-5.0); BUN Creatinine Ratio 12.2 (10-20); Bilirubin,Total 0.4 mg/dl (0.2-1.0); Creatinine Clr Calc Pharmacy 146.5 ml/min; Globulin 2.1 gm/dl (2.5-4.0); Potassium 4.3 mmol/L (3.5-5.1); Total Protein 6.2 gm/dl (6.0-8.3)
[2024-04-24 08:02] VITALS: TEMP 98.4
[2024-04-24] MEDS: METOPROLOL SUCC 50MG EXT REL TAB PO SCH (08:03)
--- NOTE | 2024-04-24 08:34 | Cardiology Progress Note ---
Date of Service April 24, 2024 Assessment & Plan (1) Hypertrophic obstructive cardiomyopathy (HOCM): (2) Systolic anterior movement of mitral valve: (3) LVH (left ventricular hypertrophy): (4) Acute appendicitis: Plan Ms. Coombs is stable from a cardiac perspective. She continues with her usual dose of metoprolol and her heart rate is controlled as is her blood pressure. She is not having any shortness of breath or signs of fluid overload. I'm not sure if ezekiel is on formulary but I have resumed the prescription if available, otherwise she can resume at discharge. She is ok for discharge from our perspective when ok with the hospitalists and surgery. She has follow up in the cardiology clinic scheduled including echo in May. Admission and Anticipated Discharge Date Admission Date: April 23, 2024 Subjective Ms. Coombs is post op. Her pain is better than before her operation. No shortness of breath or chest pain. No palpitations. SR on the monitor. Review of Systems Review of Systems: All systems reviewed & are unremarkable except as noted in HPI & below Physical Exam Constitutional: WD/WN, vitals as above Respiratory: normal respiratory effort, lungs clear to auscultation Cardiovascular: Rate/Rhythm: regular rate and regular rhythm Heart Sounds: + murmur (3/6 systolic ) Extremities: no edema Skin: no rashes, warm and dry Neurologic: moves all extremities and awake Psychiatric: A+Ox3, euthymic affect Results & Data Vital Signs (Past 12 Hours) Vital Signs Temp Pulse Pulse Pulse Resp BP Pulse Ox 04/24/24 08:01 36.9 C 81 16 125/71 94 04/24/24 04:00 37.4 C 04/24/24 03:09 37.7 C H 87 18 120/73 94 04/23/24 23:00 37.0 C 87 18 104/59 L 95 04/23/24 22:14 78 04/23/24 22:02 37.2 C 89 16 108/64 93 04/23/24 21:00 36.8 C 84 18 120/75 95 04/23/24 20:31 73 O2 Del Method 04/24/24 08:01 Room Air 04/24/24 04:00 04/24/24 03:09 Room Air 04/23/24 23:00 Room Air 04/23/24 22:14 04/23/24 22:02 Room Air 04/23/24 21:00 Room Air 04/23/24 20:31
--- OUTSIDE RECORDS SUMMARY | 2024-04-24 08:48 | External Medical Summary | Continuity of Care Document ---
Author Name Unknown Organization [facility] [address] [place], [place] [id number] Encounter [facility] [id number] Date(s): 03/26/24 - 03/26/24 [facility] [address], [address] [place] [address] [phone] Encounter Diagnosis Hyperlipidemia(Discharge Diagnosis) - 03/26/24 PVC's (premature ventricular contractions)(Discharge Diagnosis) - 03/26/24 Hypertrophic cardiomyopathy(Discharge Diagnosis) - 03/26/24 Discharge Disposition: Home or Self Care Attending Physician: DO Finch Jason D Referring Physician: MD Maldonado Selim Ramzi Allergies, Adverse Reactions, Alerts Substance Criticality Severity Reaction Reaction Severity Status Lexapro suicidal Active Medications Advil Start: 03/26/24 8:54:00 AM EDT, once month 200mg Start Date: 03/26/24 Status: Ordered Albuterol (Eqv-ProAir HFA) 90 mcg/inh inhalation aerosol Start: 03/25/24 2:36:00 PM EDT Start Date: 03/25/24 Status: Ordered Benadryl 25 mg oral capsule Start: 03/26/24 8:54:00 AM EDT, 1 cap, PO, tid, PRN: as needed for allergy symptoms Start Date: 03/26/24 Status: Ordered Crestor 10 mg oral tablet Start: 03/26/24 9:41:00 AM EDT, 1 tab, PO, Daily, Disp# 90 tab, Refills: 3, Pharmacy: [facility] Start Date: 03/26/24 Status: Ordered estradiol 0.025 mg/24 hours weekly transdermal film, extended release Start: 03/25/24 2:37:00 PM EDT, 1 patch, topical, q7days Start Date: 03/25/24 Status: Ordered mavacamten 5 mg oral capsule Start: 03/26/24 9:42:00 AM EDT, 1 cap, PO, Daily, Disp# 30 cap, Refills: 11, Pharmacy: [facility] [place] ([id number] Start Date: 03/26/24 Status: Ordered metoprolol succinate 200 mg oral tablet, extended release Start: 03/26/24 9:40:00 AM EDT, 1 tab, PO, bid, Disp# 180 tab, Refills: 3, Pharmacy: [facility] Start Date: 03/26/24 Status: Ordered Tums 500 mg oral tablet, chewable Start: 03/25/24 2:37:00 PM EDT, 1 tab, PO, tid, PRN: as needed for indigestion Start Date: 03/25/24 Status: Ordered Tylenol 325 mg oral tablet Start: 03/25/24 2:36:00 PM EDT Start Date: 03/25/24 Status: Ordered ZyrTEC 10 mg oral tablet Start: 03/25/24 2:37:00 PM EDT, 1 tab, PO, Daily, PRN: as needed for allergy symptoms Start Date: 03/25/24 Status: Ordered Mental Status 03/26/24 Barriers to Learning one year None evide nt Mandatory Health Literacy Documentation Yes Health Literacy Communication Barriers N ever Primary Language Spanish Problem List Condition Confirmation Course Effective Dates Status H ealth Status Informant Asthma Confirmed Active Hyperlipidemia Confirmed Active Hypertrophic cardiomegaly Confirmed Active Diagnosis Diagnosis Type Effective Dates Health Status Clinical Service Informant Hypertrophic cardiomyopathy Discharge Diagnosis 03/26/24 Non-Specified PVC's (premature ventricular contractions) Discharge Diagnosis 03/26/24 Non-Specified Hyperlipidemia Discharge Diagnosis 03/26/24 Vital Signs Most recent to oldest [Reference Range]: 1 Height 177.5 cm (03/26/24 9:05 AM) Patient Weight 127 kg (03/26/24 9:05 AM) Body Mass Index 40.31 kg/m2 (03/26/24 9:05 AM) Heart Rate 71 bpm (03/26/24 9:05 AM) Blood Pressure 122/68mmHg (03/26/24 9:05 AM) BP Location # 1 Right Arm (03/26/24 9:05 AM) Social History Social History Type Response Smoking Status Former Smoker, quit > 1 yr Sex Female Sex Representation Female (finding) Cardiology * Contributor_system, MUSE01: VERIFY, PERFORM Event Display: EKG Authored Date: Please click on link to see image. Cardiology Consult note * DO Finch Jason D: PERFORM Event Display: Cardiology Consult Authored Date: Chief Complaint est care HCM Reason for Consultation HCM on Mavacamten History of Present Illness She is a very pleasant 38-year-old female who was diagnosed with hypertrophic cardiomyopathy. [place] being always short of breath as an adolescent. She was diagnosed about 10 years ago. She has been on high-dose beta-blockers and then was placed on verapamil.. She had significant side effects of verapamil including long-term side effects of her eustachian tube opening with higher bloodpressures leading to hearing her breathing in her ears. She was started on mavacamten of 2021 and initially felt dramatically better. Unfortunately she moved to fair amounts and could not find a provider to write for her mavacamten. Her symptoms quickly returned. She notes before mavacamten she could even climb a flight of stairs without shortness of breath andchest tightness and it would take her at least 30 minutes to recover. On mavacamten at the 5 mg dose with high-dose beta-blockers she can climb 2 flights of stairs and even with carrying something it takes her about 5 minutes to recover. She does have palpitations which sound like PVCs. She denies any sudden onset sudden offset of her heart racing while she has been on mavacamten and beta-blockers. She has had no falls or syncopal episodes. She denies any lower extremity edema or symptoms of claudication. She denies any PND orthopnea. She denies any chest tightness or chest pressure with activity since she has been on mavacamten. She has previously been on rosuvastatin without any side effects. Again with frequent moves she has not found someone who has been willing to write for statin therapy. Review of Systems Past medical history: 1. Hypertrophic cardiomyopathy with LVOT obstruction and BELEN 2. Previous genetic testing (I do not have the results) with genes of undetermined significance 3. History of PVCs 4. Hyperlipidemia 5. 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 She has a brother who has the same gene as her but does not have any phenotypic presentation of HCM She notes on her father side her great aunts and uncles all before the age of 50. They were told "they had heart attacks" Physical Exam Vitals & Measurements HR:71(Monitored) BP:122/68 SpO2:98% HT:177.5cm WT:127kg WT:127.000kg(Dosing) BMI:40.31 BMI:40.31 kg/m2 Patient is awake alert and oriented x3and in no acute distress HEENT:2+ carotid upstrokes, no evidence of carotid bruits LUNGS:Clear to auscultation bilaterally no rales rhonchi or wheezing HEART:Regular rate and rhythm; 2 out of 6 systolic ejection murmur which is early to mid peaking;I did not appreciate a significant holosystolic murmur at the apex ABDOMEN:Soft nontender nondistended positive bowel sounds EXTREMITIES:No evidence of clubbing cyanosis or edema PSYCHIATRIC:Patient's affect appeared appropriate EKG EKG today sinus rhythm left ventricular hypertrophy with QRS widening and secondary ST-T changes left atrial enlargement Assessment/Plan 1.Hypertrophic cardiomyopathy 2.PVC's (premature ventricular contractions) 3.Hyperlipidemia Her outside records from [place] were reviewed. Her labs in October revealed a total cholesterol 239, LDL 145, triglycerides 217, HDL 50; sodium 136, potassium 4.0, BUN 13, creatinine 0.8; AST was 20 and ALT was 50 Echocardiogram 02/19/2024 normal LV size mildly increased LV mass and septal wall thickening mild left ventricular hypertrophy EF 65 to 70%; moderate left atrial enlargement; systolic anterior motion and of the mitral valve leaflet involving the cords with an LVOT gradient of at least 30 mmHg that increased to 100 mmHg with Valsalva; mild to moderate mitral regurgitation; normal pulmonary artery pr essures Plan: 1. She has not received mavacamten yet through [employer] health insurance which is new. I sentit to the [facility] specialty pharmacy but that is where she has been getting her current meds and is only approved to specialty pharmacies. I discussed with her may be a delay especially as we may need to get prior authorization now that she switched health insurances. 2. She does not have any side effects from beta-blockers even though she is on a very high dose and therefore we will continue with her current medication 3. I restarted her Crestor 10 mg daily given her LFT abnormalities and the likeliness that there is some degree of fatty infiltration of her liver. She will need a repeat lipid profile and complete metabolic profile when she returns in 3 months 4. She needs a Holter monitor when she returns in 3 months to make sure she is not have any significant ventricular ectopy or runs of nonsustained VT especially in light of the family history of people dying before the age of 50. 5. She will need an echocardiogram which is scheduled for May 22 and is 3 months after her last echo. If her LVOT gradient is less than 30 she will stay on her current dose of mavacamten if her LVOT gradient is greater than 30 there is room to increase her mavacamten further with an echocardiogram 30 days later. All this was discussed with her in detail. Discussed if she noted worsening shortness of breath or lightheadedness or dizziness especially with palpitations or unexplained syncope she needs to immediately let us know. Problem List/Past Medical History Ongoing Asthma Hyperlipidemia Hypertrophic cardiomegaly Medications Home acetaminophen(Tylenol 325 mg oral tablet) albuterol(Albuterol (Eqv-ProAir HFA) 90 mcg/inh inhalation aerosol) calcium carbonate(Tums 500 mg oral tablet, chewable), 500 mg= 1 tab, PO, tid, PRN cetirizine(ZyrTEC 10 mg oral tablet), 10 mg= 1 tab, PO, Daily, PRN diphenhydrAMINE(Benadryl 25 mg oral capsule), 25 mg= 1 cap, PO, tid, PRN estradiol(estradiol 0.025 mg/24 hours weekly transdermal film, extended release), 1 patch, topical,q7days ibuprofen(Advil) mavacamten(mavacamten 5 mg oral capsule), 5 mg= 1 cap, PO, Daily, 11 refills metoprolol(metoprolol succinate 200 mg oral tablet, extended release), 200 mg= 1 tab, PO, bid, 3 refills rosuvastatin(Crestor 10 mg oral tablet), 10 mg= 1 tab, PO, Daily, 3 refills Allergies Lexaprosuicidal Social History Smoking Status Former Smoker, quit > 1 yr Electronic Signature on File Electronically Reviewed/Signed by: Blaise Finch DO Author Signature Dt/Tm:03/26/2024 10:31 AM Education Professorfiller wiper [facility] [place] [address] [place] [address] HOLDEN
--- NOTE | 2024-04-24 08:54 | Surgery Progress Note ---
Date of Service April 24, 2024 Assessment & Plan (1) Acute appendicitis: Plan: POD 1 lap appy expected post surgical discomfort VSS , tolerating diet no n/v port sites CDI, dermabond stable for d/c from surgical standpoint f/u o/p office 2 weeks return precautions reviewed Admission and Anticipated Discharge Date Admission Date: April 23, 2024 Supervising Physician Co-Signing Physician Notes Patient seen and examined, agree with above. POD #1 laparoscopic appendectomy. Feels better than prior to surgery. Tolerated breakfast. On exam afebrile stable vitals, incisions with Dermabond, no evidence of infection. Abdomen appropriately tender to palpation. Okay to DC to home, follow-up in general surgery clinic in 2 weeks. Wound care instructions, activity restrictions, return precautions given. No need for additional antibiotics. Subjective tolerable abd pain no n/v , voiding without difficulty Review of Systems Constitutional: no fever Respiratory: no dyspnea Cardiovascular: no chest pain Gastrointestinal: + abdominal pain; no nausea and no vomit ing Genitourinary: no dysuria Physical Exam Constitutional: cooperative and comfortable; no acute distress Respiratory: normal respiratory effort and able to speak in complete sentences; no respiratory distress Gastrointestinal (Abdomen): Inspection/Auscultation: + abdominal surgical incision (CDI ); abdomen not distended Percussion/Palpation: abdomen soft Results & Data Vital Signs (Past 12 Hours) Vital Signs Temp Pulse Pulse Pulse Resp BP Pulse Ox 04/24/24 08:01 98.4 F 81 16 125/71 94 04/24/24 04:00 99.3 F 04/24/24 03:09 99.9 F H 87 18 120/73 94 04/23/24 23:00 98.6 F 87 18 104/59 L 95 04/23/24 22:14 78 04/23/24 22:02 99.0 F 89 16 108/64 93 04/23/24 21:00 98.2 F 84 18 120/75 95 O2 Del Method 04/24/24 08:01 Room Air 04/24/24 04:00 04/24/24 03:09 Room Air 04/23/24 23:00 Room Air 04/23/24 22:14 04/23/24 22:02 Room Air 04/23/24 21:00 Room Air PG Care Time/CCT Total # of Minutes Spent Total Time Spent with Patient: Total time spent is greater than 50% in coordination of care (as documented) at patient's floor/unit and/or counseling patient: Coding Level of Care Code 62201 Post Operative Follow-Up Diagnoses Acute appendicitis K35.80
[2024-04-24] MEDS ORDERED: ROSUVASTATIN CALCIUM 10 MG TAB PO SCH (09:00)
[2024-04-24] MEDS ORDERED: CETIRIZINE HCL 10 MG TABLET PO SCH (09:00)
[2024-04-24 11:48] VITALS: RESP 12
--- NOTE | 2024-04-24 14:31 | Discharge Summary ---
Discharge Summary Date of Service April 24, 2024 Principal Dx & Hospital Course #1 = Principal Diagnosis (1) Acute appendicitis: (2) S/P laparoscopic appendectomy: (3) Hypertrophic obstructive cardiomyopathy (HOCM): Plan 38-year-old transgender female with past medical history of HOCM presented with abdominal pain and was found to have acute appendicitis #Acute appendicitis Patient underwent laparoscopic appendectomy by Dr. Santos Fajardo on 04/23/2024 She was initially started on IV Zosyn I spoke with surgery team provider today and from their point of view patient is stable for discharge and does not need antibiotics on discharge Patient has been prescribed analgesia by surgery team and she will follow-up with surgery team as outpatient for postsurgical follow-up #HOCM Outpatient weight loss centre manager Dr. Blaise Finch Patient was seen by cardiology team here for optimization prior to surgery As per cardiology, patient to continue with metoprolol succinate ER 200 mg p.o. twice daily and Camzyos per her home dose Patient saturating well on room air without any chest pain or shortness of breath She will follow-up with her weight loss centre manager as outpatient Patient has been cleared by surgery for discharge. Patient seen and examined. I gone over the discharge care plan, medications and follow-up with the patient in great detail and answered all their questions This discharge took greater than 30 minutes to coordinate Admission HPI Per Admitting Provider Olesya Coombs is a 38 year old transgender female who presents to the ER with abdominal pain. Abdominal pain started last night, initially central but moved to the right lower quadrant. Subjective chills with nausea but no vomiting. Rece ntly just restarted Camzyos for HOCM and reportedly does much better with shortness of breath on this medication. Currently no shortness of breath, chest pain, palpitations, leg swelling or weight gain. Discharge Exam General: No acute distress Psych: Awake and alert HEENT: Anicteric sclera, moist oral mucosa CVS: Regular rate and rhythm Lungs: Bilateral air entry, no wheezing noted Abdomen: Soft, surgical incision sites noted: No discharge noted, tenderness around incision site, Ext: No lower extremity edema, no calf tenderness Neuro: No focal motor deficits noted Discharge Plan Discharge Items Patient Disposition: Home - Self-Care Reason For Visit: ACUTE APPENDICITIS Discharge Diagnosis: laparoscopic appendectomy Acute appendicitis Hypertrophic obstructive cardiomyopathy Activity: As commented below Lifting: No more than 25 pounds Bathing Comment: you can shower 04/24. no soaking in pools/bath for 2 weeks Exercise/Sports: Wait until after follow-up appointment Driving/Machine Use: no driving if taking narcotic pain medication Non-emergency contact: Surgeon Call non-emergency contact if: you have any medication questions, your symptoms worsen, your temperature is above 101.5, your wound has increased redness, your wound has increased drainage and your wound pain has increased Follow-up/Referrals: Santos Fajardo DO, FACS [Physician] - (call office for follow up in 2 weeks ) Blaise Finch DO [Physician] - PCP,NO [Primary Care Provider] - Diet: Regular and Heart Healthy Addtl Attending Provider Instructions: DISCHARGE INSTRUCTION TO PATIENT/FAMILY: Follow-up with your primary care provider within 1 week regarding: Posthospital discharge, medication review, medication refills and follow-up on all your medical problems Please take all your discharge medications, discharge information and discharge instructions to all your doctors appointments. Avoid all NSAIDs including ibuprofen, Motrin, Advil, Aleve, naproxen, meloxicam, Toradol, diclofenac You can use over the counter Tylenol 1000 mg p.o. 3 times daily as needed for mild to moderate pain. Surgery team has prescribed you oxycodone to be used for severe pain. Do not drive or operate heavy machinery while using oxycodone or any sedating medications Oxycodone/opiates can cause constipation. You may use [id number] senna and MiraLAX as needed for constipation Follow-up with the surgical team as outpatient for postop follow-up and also results of surgical pathology Labs through PCP in 1 week: CBC, CMP, MG You have surgical glue called dermabond on your surgical site incisions. You may shower with this on. This will tend to come off within a couple of weeks. Do not pick at it. Pending Studies at Discharge: Yes Studies:: surgical pathology Stand-Alone Forms: My [employer], Smoking Cessation Medications and DC Order Prescriptions: New oxycodone 5 mg tablet 5 - 10 mg PO .[id number] MDD no more than 6 tabs in 24hours PRN (Reason: pain) Qty: 15 0RF Continued cetirizine [Zyrtec] 10 mg Tablet 10 mg PO DAILY metoprolol succinate 200 mg tablet extended release 24 hr 200 mg PO BID estradiol 0.1 mg/24 hr Patch Semiweekly 1 mg transdermal [id number] Rx Instructions: Sat/ rosuvastatin 10 mg tablet 10 mg PO DAILY Camzyos 5 mg capsule 5 mg PO DAILY Tums 300 mg (750 mg) Tablet,Chewable 300 mg PO TID PRN (Reason: Acid Reflux) Discharge Orders: Discharge Order (Routine); Ordered 04/24/24 Ordered By: Zack Forde Admission Data Admit Date/Time: 04/23/24 12:26 Attending Provider: Zack Forde Admit Provider: Ludwig Arrington Primary Care Provider: PCP,NO Other Providers: Santos Fajardo; Lyle Loomis; Ludwig Arrington Other Interventions: Discharge Summary Assessment (RN) Last Done: 04/24/24 14:35 Hospital Stay Data Consultations 04/23/24 11:35 Consult General Surgery Stat 04/23/24 12:17 Consult Cardiology Stat ED Decision to Admit Stat Procedures Performed Operation Date: 04/23/24 11:20 Actual Procedures p Laparoscopic Appendectomy(Not Applicable) - Santos Fajardo DO, FACS Diagnostic Imagining Performed 04/23/24 08:56 CT abd pelvis IV con only Stat Abdomen/Pelvis CT 04/23/24 08:56 CT SCAN OF THE ABDOMEN AND PELVIS WITH IV CONTRAST CLINICAL HISTORY: Right lower quadrant abdominal pain. COMPARISON STUDY: No priors. TECHNIQUE: Following the IV administration of 94 cc of Optiray 320, CT scan of the abdomen and pelvis is performed from the lung bases to the proximal femora. Images are reviewed in the axial, sagittal, and coronal planes. IV contrast was administered without complication. A dose lowering technique was utilized adhering to the principles of ALARA. CT DOSE: 1548.73 mGy.cm FINDINGS: Lung bases: The heart is normal in size and without pericardial effusion. The lung bases are clear. There is a tiny hiatal hernia. Liver: The contrast-enhanced liver is enlarged, measuring 20.5 cm in length. Attenuation is diffusely diminished indicating steatosis.. There is no intrahepatic biliary ductal dilatation. The hepatic veins and portal veins are patent. Gallbladder: Unremarkable. Spleen: Normal in size and attenuation. Pancreas: Unremarkable. Adrenal glands: Unremarkable. Kidneys: The contrast enhanced kidneys are normal in size and without hydronephrosis. The kidneys enhance symmetrically. Abdominal vasculature: The abdominal aorta is normal in course and caliber. Bowel: There is no bowel obstruction. The appendix is the appendix is thick- walled and dilated, measuring up to 1.5 cm diameter as seen on axial image #257. The appendiceal wall is thickened and there is mild periappendiceal inflammation. Findings are consistent with acute appendicitis. There are large calcified appendicoliths. No fluid collection is seen to indicate abscess. Peritoneum: There is no intraperitoneal free air or abdominal ascites. There is a fat-containing umbilical hernia. Lymphadenopathy: None. Pelvic viscera: The bladder is normal as visualized. The prostate gland is diminutive and heterogeneous. The seminal vesicles are normal as imaged. Skeletal structures: No lytic or blastic lesions are seen. IMPRESSION: 1. Acute appendicitis. 2. There is no evidence of abscess or perforation. 3. Hepatomegaly and hepatic steatosis. 4. Additional findings as above. ACT 112: Negative or not required by law. Electronically signed by: Porfirio Dobson M.D. 04/23/2024 10:15 AM Laboratory Results - last 48 hr 04/23/24 04/23/24 04/24/24 08:25 08:27 06:15 WBC 12.71 H 13.95 H RBC 4.55 4.00 L Hgb 13.4 11.8 L Hct 38.7 33.9 L MCV 85.1 84.8 MCH 29.5 29.5 MCHC 34.6 34.8 RDW Std Deviation 36.6 36.0 L RDW Coeff of Carmella 12.0 11.8 Plt Count 198 188 MPV 11.5 11.3 Immature Gran % (Auto) 0.4 0.4 Neut % (Auto) 73.0 82.9 Lymph % (Auto) 16.8 8.9 [place]ill % (Auto) 7.2 7.6 Eos % (Auto) 2.1 0.1 Baso % (Auto) 0.5 0.1 Neut # (Auto) 9.28 H 11.56 H Lymph # (Auto) 2.13 1.24 Traill # (Auto) 0.92 H 1.06 H Eos # (Auto) 0.27 0.01 Baso # (Auto) 0.06 0.02 Immature Gran # (Auto) 0.05 0.06 PT 9.9 INR 0.9 Sodium 138 137 Potassium 4.3 4.3 Chloride 104 105 Carbon Dioxide 28 27 Anion Gap 6 5 BUN 9 9 Creatinine 0.72 0.74 Est Cr Clr Drug Dosing 147.5 146.5 eGFR 108.33 104.83 BUN/Creatinine Ratio 12.5 12.2 Glucose 115 H 140 H Calcium 9.6 9.0 Magnesium 1.8 Total Bilirubin 0.5 0.4 AST 17 17 ALT 30 29 Alkaline Phosphatase 49 41 Total Protein 7.1 6.2 Albumin 4.7 4.1 Globulin 2.4 L 2.1 L Albumin/Globulin Ratio 2.0 2.0 Lipase 13 TSH 4.169 HCG, Qual Negative Urine Color Yellow Urine Appearance Clear Urine pH 5.5 Ur Specific [place] 1.018 Urine Protein Negative Urine Glucose (UA) Negative Urine Ketones Negative Urine Blood Negative Urine Nitrite Negative Urine Bilirubin Negative Urine Urobilinogen Negative Ur Leukocyte Esterase Trace H Urine WBC (Auto) 6-10 H Urine RBC (Auto) 0-2 U Hyaline Cast (Auto) 0-2 U Epithel Cells (Auto) 3-5 H Urine Bacteria (Auto) None Seen Pending Results Patient Have Any Pending Studies at Discharge: Yes Discharge Instructions Given to Patient (Per Discharging Provider) DISCHARGE INSTRUCTION TO PATIENT/FAMILY: Follow-up with your primary care provider within 1 week regarding: Posthospital discharge, medication review, medication refills and follow-up on all your medical problems Please take all your discharge medications, discharge information and discharge instructions to all your doctors appointments. Avoid all NSAIDs including ibuprofen, Motrin, Advil, Aleve, naproxen, meloxicam, Toradol, diclofenac You can use over the counter Tylenol 1000 mg p.o. 3 times daily as needed for mild to moderate pain. Surgery team has prescribed you oxycodone to be used for severe pain. Do not drive or operate heavy machinery while using oxycodone or any sedating medications Oxycodone/opiates can cause constipation. You may use [id number] senna and MiraLAX as needed for constipation Follow-up with the surgical team as outpatient for postop follow-up and also results of surgical pathology Labs through PCP in 1 week: CBC, CMP, MG You have surgical glue called dermabond on your surgical site incisions. You may shower with this on. This will tend to come off within a couple of weeks. Do not pick at it. Total Time Total Time Spent Total Time Spent (In Minutes): 35 minutes Total Time Includes: Examination of the Patient, Discharge Planning, Medication Reconciliation and Communication With Other Providers Coding Level of Care Code 54958 INP/OBS DISCH >30 MIN Diagnoses Acute appendicitis K35.80 S/P laparoscopic appendectomy Z90.49 Hypertrophic obstructive cardiomyopathy (HOCM) I42.1
[2024-04-24 14:36] VITALS: BP 155/83; PULSE 87
== END 2024-04-24 15:01 | disposition home or self-care (01) ==
LOC: ED 08:10 → 2W 08:10 → SUATTDRO 12:26 → 2W 13:19